=== PATIENT | female | born 1975 | race Hispanic/Latino ===

== ENCOUNTER 2024-03-21 23:08 | Emergency (ER) | payer OTHER, SELFPAY ==
--- NOTE | 2024-03-21 23:30 | EDPHYS ---
Physician Documentation [facility] Name: Mame English Age: 48 yrs Sex: Female : 1975 Arrival Date: 03/21/2024 Time: 23:08 Bed IW3 Private MD: ED Physician Colin Torres HPI: 03/21 23:29 This 48 yrs old Female presents to ER via Unassigned with complaints of kb Toothache. 23:29 Pt is a 48 year old female who presents for toothache to left lower jaw that started kb one week ago. States the pain has progressively gotten worse. Denies fever, swelling, nuasea, vomiting. 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 - Infectious Disease History:: Denies. - Social history:: Smoking status: Patient denies any tobacco usage or history of. ROS: 23:28 Constitutional: As per HPI kb Exam: 23:28 Constitutional: This is a well developed, well nourished patient who is awake, alert, kb and in no acute distress. Head/Face: Normocephalic, atraumatic. Cardiovascular: Regular rate Respiratory: Respirations even and unlabored. No increased work of breathing. Talking in full sentences Skin: Warm, dry with normal turgor. Normal color. MS/ Extremity: Pulses equal, no cyanosis. Neurovascular intact. Full, normal range of motion. Neuro: Awake and alert, GCS 15, oriented to person, place, time, and situation. Moves all extremities. Normal gait. 23:28 ENT: Dental exam: gum swelling, that is mild, specifically in the lower left second molar (#18), pain, Vital Signs: 23:38 BP 147 / 89; Pulse 74; Resp 18; Temp 98.8; Pulse Ox 100% ; Weight 102.06 kg; Height 5 vc1 ft. 2 in. ; Pain 10/10; 23:38 Body Mass Index 41.15 (102.06 kg, 157.48 cm) vc1 23:38 Pain Scale: Adult vc1 MDM: 23:22 Patient medically screened. kb 23:28 Differential diagnosis: dental caries, gingivitis, dental abscess, pericoronitis. Data kb reviewed: vital signs, nurses notes. Counseling: I had a detailed discussion with the patient and/or guardian regarding the historical points, exam findings, and any diagnostic results supporting the discharge/admit diagnosis, the need for outpatient follow up, a dentist, to return to the emergency department if symptoms worsen or persist or if there are any questions or concerns that arise at home. Administered Medications: 23:38 Drug: Amoxicillin-Clavulanate PO 875 mg PO once Route: PO; vc1 23:38 Follow up: Response: Medication administered at discharge. vc1 23:38 Drug: Hydrocodone-Acetaminophen PO (7.5 mg-325 mg) 1 tabs PO once Route: PO; vc1 23:38 Follow up: Response: Medication administered at discharge. vc1 Disposition Summary: 03/21/24 23:29 Discharge Ordered Notes: Location: Home kb Condition: Stable kb Diagnosis - Periapical abscess without sinus kb Followup: kb - With: Emergency Department - When: As needed - Reason: Worsening of condition Followup: kb - With: Private Physician - When: 2 - 3 days - Reason: Recheck today's complaints, Continuance of care, Re-evaluation by your physician Discharge Instructions: - Discharge Summary Sheet kb - Dental Abscess, [id number] kb Forms: - Medication Reconciliation Form kb - Antibiotic Education kb - Prescription Opioid Use kb - Patient Portal Instructions kb - Leadership Thank You Letter kb Prescriptions: - Augmentin 875-125 mg Oral Tablet - take 1 tablet ORAL route every 12 hours for 10 days; 20 tablet; Refills: 0, kb Product Selection Permitted - Diclofenac Sodium 75 mg Oral tablet, delayed release (enteric coated) - take 1 tablet ORAL route 2 times per day As needed; 30 tablet; Refills: 0, kb Product Selection Permitted Signatures: Lupe Trivedi FNP-C FNP-Gege Pearson RN RN vc1
[2024-03-21] MEDS ORDERED: HYDROCODONE/APAP 7.5/325 MG TAB ONE (23:32)
[2024-03-21] MEDS ORDERED: AMOX/K CLAV 875 MG TAB ONE (23:32)
--- NOTE | 2024-03-21 23:44 | ER ---
Nurse's Notes [facility] Name: Mame English Age: 48 yrs Sex: Female : 1975 Arrival Date: 03/21/2024 Time: 23:08 Bed IW3 Private MD: Diagnosis: Periapical abscess without sinus Presentation: 03/21 23:38 Chief complaint: Patient states: had a toothache for over a week. Coronavirus screen: vc1 Client denies travel out of the [place] in the last 14 days. At this time, the client does not indicate any symptoms associated with coronavirus-19. Ebola Screen: Patient negative for fever greater than or equal to 101.5 degrees Fahrenheit, and additional compatible Ebola Virus Disease symptoms Patient denies exposure to infectious person. Patient denies travel to an Ebola-affected area in the 21 days before illness onset. No symptoms or risks identified at this time. Initial Sepsis Screen: Does the patient meet any 2 criteria? No. Patient's initial sepsis screen is negative. Does the patient have a suspected source of infection? No. Patient's initial sepsis screen is negative. Risk Assessment: Do you want to hurt yourself or someone else? Patient reports no desire to harm self or others. Onset of symptoms is unknown. 23:38 Method Of Arrival: Ambulatory vc1 23:38 Acuity: RAZIA 4 vc1 Triage Assessment: 23:40 General: Appears in no apparent distress. uncomfortable, obese, well groomed, well vc1 developed, Behavior is calm, cooperative, flat, quiet. Pain: Complains of pain in lower left second molar (#18) Pain does not radiate. Pain currently is 10 out of 10 on a pain scale. Quality of pain is described as sharp, throbbing, Pain began over a week. EENT: Reports pain in lower left second molar (#18). Neuro: Level of Consciousness is awake, alert, obeys commands, Oriented to person, place, time, situation, Appropriate for age. Cardiovascular: No deficits noted. Heart tones S1 S2 present Capillary refill < 3 seconds Patient's skin is warm and dry. Respiratory: Airway is patent Respiratory effort is even, unlabored, Respiratory pattern is regular, symmetrical, Breath sounds are clear bilaterally. GI: Abdomen is round non-distended. : No deficits noted. No signs and/or symptoms were reported regarding the genitourinary system. Derm: Skin is intact, is healthy with good turgor, Skin is dry, Skin is normal, Skin temperature is warm. Musculoskeletal: Circulation, motion, and sensation intact. Range of motion: intact in all extremities. 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 - Infectious Disease History:: Denies. - Social history:: Smoking status: Patient denies any tobacco usage or history of. Screenin:39 [facility] ED Fall Risk Assessment (Adult) History of falling in the last 3 months, vc1 including since admission No falls in past 3 months (0 pts) Confusion or Disorientation No (0 pts) Intoxicated or Sedated No (0 pts) Impaired Gait No (0 pts) Mobility Assist Device Used No (0 pt) Altered Elimination No (0 pt) Score/Fall Risk Level 0 - 2 = Low Risk Oriented to surroundings, Maintained a safe environment, Educated pt \T\ family on fall prevention, incl call for assistance when getting out of bed. Abuse screen: Denies threats or abuse. Nutritional screening: No deficits noted. Tuberculosis screening: No symptoms or risk factors identified. Assessment: 23:42 General: see triage assessment. vc1 Vital Signs: 23:38 BP 147 / 89; Pulse 74; Resp 18; Temp 98.8; Pulse Ox 100% ; Weight 102.06 kg; Height 5 vc1 ft. 2 in. ; Pain 10/10; 23:38 Body Mass Index 41.15 (102.06 kg, 157.48 cm) vc1 23:38 Pain Scale: Adult vc1 ED Course: 23:14 Patient arrived in ED. ra3 23:22 Lupe Trivedi FNP-C is [facility]. kb 23:22 Colin Torres MD is Attending Physician. kb 23:38 Gege Koroma RN is Primary Nurse. vc1 23:39 Triage completed. vc1 23:40 Arm band placed on right wrist. vc1 23:42 Treated and discharged from triage. Provided Education on: complete abx and f/u with vc1 dentist. 23:42 No provider procedures requiring assistance completed. Patient did not have IV access vc1 during this emergency room visit. Administered Medications: 23:38 Drug: Amoxicillin-Clavulanate PO 875 mg PO once Route: PO; vc1 23:38 Follow up: Response: Medication administered at discharge. vc1 23:38 Drug: Hydrocodone-Acetaminophen PO (7.5 mg-325 mg) 1 tabs PO once Route: PO; vc1 23:38 Follow up: Response: Medication administered at discharge. vc1 Medication: 23:43 VIS not applicable for this client. vc1 Outcome: 23:29 Discharge ordered by . evelio 23:42 Discharged to home ambulatory, with significant other, vc1 23:42 Condition: good 23:42 Discharge instructions given to patient, Instructed on discharge instructions, follow up and referral plans. medication usage, Demonstrated understanding of instructions, follow-up care, medications, Prescriptions given X 2, 23:43 Patient left the ED. vc1 Signatures: Lupe Trivedi, BARRY HUTTONP-Gege Pearson RN RN vc1 Mayra Shoemaker ra3
[2024-03-21 23:59] VITALS: BP 147/89; TEMP 98.8; O2SAT 100
== END 2024-03-21 23:43 | disposition home or self-care (01) ==
LOC: ER 23:08
DX: K04.7 Periapical abscess without sinus (principal)
CPT/HCPCS: 99283